=== PATIENT | female | born 1995 | race Caucasian/White ===

== ENCOUNTER 2022-02-18 23:06 | Emergency (ER) | payer OTHER ==
[~2022-02-18 23:06] MED LIST: IBUPROFEN800 M1 PO
[2022-02-19 00:34] LABS: BASOPHIL 0.3 % (0-2); EOSINOPHIL 0.8 % (0-5); HCT 38.6 % (37.0-47.0); HGB 13.7 g/dl (12.5-16.0); MCHC 35.5 g/dL (32.0-36.0); MCV 84.5 fL (78.0-100.0); MONOCYTE 17.4 % (0-12); MPV 10.7 fL (6.0-9.5); NEUTROPHIL 70.5 % (41-80); NRBC 0; PLT 140 K/uL (150-400); RBC 4.57 M/uL (4.20-5.40); RDW 12.4 % (11.5-14.0); WBC 6.3 K/uL (4.0-10.5)
[2022-02-19 00:37] LABS: LYMPHOCYTE 10.7 % (15-48)
[2022-02-19 00:55] LABS: BILIRUBIN 2+ mg/dL (NEGATIVE); BLOOD NEGATIVE Ery/uL (NEGATIVE); CLARITY CLEAR (CLEAR); COLOR YELLOW (YELLOW); GLUCOSE (U) NORMAL (NORMAL); LEUKOCYTES NEGATIVE Leu/uL (NEGATIVE); NITRITE NEGATIVE (NEGATIVE); PROTEIN 1+ mg/dL (NEGATIVE); SPECIFIC GRAVITY 1.025 (1.001-1.030); UROBILINOGEN 0.2 mg/dL (0.2-1.0)
[2022-02-19 00:57] LABS: ALBUMIN 3.3 g/dL (3.4-5.0); BILIRUBIN - TOTAL 0.6 mg/dL (0.2-1.0); BUN/CREAT RATIO (CALC) 23.1 RATIO; CREATININE 0.65 mg/dL (0.51-0.95); POTASSIUM 3.5 mmol/L (3.5-5.1); TOTAL PROTEIN 6.3 g/dL (6.4-8.2)
[2022-02-19 00:58] LABS: INR 1.08 (0.9-1.2); PROTHROMBIN TIME 13.7 SECONDS (11.9-13.9); PTT 27.8 SECONDS (24.9-34.6)
[2022-02-19 01:38] LABS: BACTERIA 1+; CALCIUM OXALATE CRYSTALS TRACE; MUCOUS TRACE
[2022-02-19] MEDS ORDERED: ONDANSETRON ODT4 MG PO (01:52)
[2022-02-19 02:39] LABS: INFLUENZA A NAA NEGATIVE (NEGATIVE)
[2022-02-19 02:43] LABS: CORONAVIRUS 2019 SARS-COV-2 POSITIVE (NEGATIVE)
== END 2022-02-19 04:36 | disposition home or self-care (01) ==
LOC: FER 23:06
PROVIDERS: Internal Medicine
DX: A08.4 Viral intestinal infection, unspecified (principal); U07.1 COVID-19; Z28.310 Unvaccinated for COVID-19
CPT/HCPCS: 36415; 80053; 81001; 84145; 85025; 85610; 85730; J2405; J3475; J7030; J7120; U0002